=== PATIENT | female | born 1970 | race Asian ===

== ENCOUNTER 2019-03-04 08:26 | Outpatient (CLI) | payer BC ==
--- NOTE | 2019-03-04 13:16 | Mammography Report ---
BILATERAL DIGITAL DIAGNOSTIC MAMMOGRAM WITH CAD -- 03/04/2019 BILATERAL COMPLETE BREAST ULTRASOUND INDICATION: Bilateral breast pain. Previously confirmed bilateral cysts. TECHNIQUE: Digital bilateral mammographic imaging was performed. This examination was interpreted w ith the benefit of Computer-Aided Detection (CAD) analysis. COMPARISON: 05/18/2018 FINDINGS: Breast Density: The breasts are heterogeneously dense, which may obscure small masses. MAMMOGRAPHIC FINDINGS: There is no evidence of dominant mass, suspicious calcifications or architectu ral distortion in either breast. A few scattered bilateral benign calcifications. ULTRASOUND FINDINGS: Complete sonographic evaluation of all 4 quadrants and retroareolar region was p erformed. Ultrasound demonstrated multiple bilateral benign cysts and no solid mass. IMPRESSION: Bilateral benign cysts and no suspicious finding. Follow up recommendation: Routine yearly BI-RADS Category 2: Benign. A "normal" or negative report should not discourage follow up or biopsy of a clinically significant f inding. A written summary of these findings will be mailed to the patient. The patient will be entered into a mammography reporting system which will generate a reminder letter for the patient's next appointmen t at the appropriate interval. According to the [employer], yearly mammograms are recommended starting at age 40 and continuing as long as a woman is in good health. Breast MRI is recommended for women with an ruby roximately 20-25% or greater lifetime risk of breast cancer, including women with a strong family his tory of breast or ovarian cancer and women who have been treated for Hodgkin's disease. Signer Name: Juliano Suggs MD Signed: 03/04/2019 1:11 PM Workstation Name: [id number]
--- NOTE | 2019-03-04 15:08 | Nuclear Medicine Report ---
NM parathyroid scan INDICATION: HYPERPARATHYROID. TECHNIQUE: 21.2 mCi of technetium 99m leveled sestamibi is administered COMPARISON: No relevant prior imaging study available. FINDINGS: No definite abnormal uptake of tracer is seen. There is uptake noted in the thyroid on the initial im aging. There is small amount residual activity in the thyroid on delayed images no discrete parathyro id adenomas identified. IMPRESSION: 1. No significant scintigraphic abnormality.. No parathyroid adenoma is identified. Signer Name: Frank Camargo MD Signed: 03/04/2019 3:03 PM Workstation Name: [id number]
== END 2019-03-04 08:27 | disposition home or self-care (01) ==
LOC: MAMMO 08:26
PROVIDERS: ATTEND Internal Medicine
DX: N60.01 Solitary cyst of right breast (principal); N60.02 Solitary cyst of left breast; E21.3 Hyperparathyroidism, unspecified
CPT/HCPCS: 76641; 77066; 78070; A9500

== ENCOUNTER 2021-04-02 08:45 | Outpatient (CLI) | payer BC ==
--- NOTE | 2021-04-02 11:50 | Mammography Report ---
DIGITAL SCREENING MAMMOGRAM WITH CAD WITH TOMOSYNTHESIS, 04/02/2021 CLINICAL INFORMATION / INDICATION: Routine screening mammography. TECHNIQUE: Digital bilateral 2D and 3D mammography was obtained in the craniocaudal and mediolateral oblique projections. This examination was interpreted with the benefit of Computer-Aided Detection a nalysis. COMPARISON: 03/04/2019, 05/18/2018 FINDINGS: Breast Density: The breasts are extremely dense, which lowers the sensitivity of mammography. No dominant mass, suspicious calcifications, or architectural distortion in either breast. IMPRESSION: No mammographic evidence of malignancy. Follow up recommendation: Routine yearly BI-RADS Category 1: Negative. A "normal" or negative report should not discourage follow up or biopsy of a clinically significant f inding. A written summary of these findings will be mailed to the patient. The patient will be entered into a mammography reporting system which will generate a reminder letter for the patient's next appointmen t at the appropriate interval. The [employer] recommends yearly mammograms starting at age 40 and continuing as l dario as a woman is in good health. Breast MRI is recommended for women with an approximate 20-25% or greater lifetime risk of breast cancer, including women with a strong family history of breast or ova moises cancer or who have been treated for Hodgkin's disease. Signer Name: Bekah Valdes MD Signed: 04/02/2021 11:46 AM Workstation Name: [id number]
== END 2021-04-02 08:46 | disposition home or self-care (01) ==
LOC: SPVWC 08:45
PROVIDERS: ATTEND Internal Medicine
DX: Z12.31 Encounter for screening mammogram for malignant neoplasm of breast (principal); N64.89 Other specified disorders of breast
CPT/HCPCS: 77063; 77067